=== PATIENT | female | born 1950 | race Caucasian/White ===

== ENCOUNTER → 2018-01-21 | Outpatient (CLI) | payer OTHER ==
[~2018-01-21] VITALS: Ht 149.9 cm; Wt 61.0 kg
[~2018-01-21] MED LIST: Advair HFA 115/21 IH; CALTRATE 6001 TABLE1 PO; CENTRUM SILVER1 EAC3 PO; CITRACAL D + H1 EACH PO; CRESTOR10 MG PO; Colace PO; LIPITOR10 MG PO; Levaquin PO; NEXIUM40 MG PO; PANTOPRAZOLE SO40 MG PO; PRED FORTE100 DROP/5 LEFT EYE; PROLENSA1.6 ML RIGHT EYE; PROTONIX40 MG PO; PROVENTIL,2.5 MG/3 M IH; SINGULAIR10 MG PO; SYMBICORT60 INHALA1 IH; THEO-DUR,THEOC200 MG PO; THEOPHYLLINE A200 M1 PO; THERAGRAN1 TABLET PO; Tessalon Perle PO; Tylenol Regular Stre PO; VITAMIN D31000 UNIT PO; ZANTAC150 MG PO
[2018-01-21 14:05] VITALS: BP 147/77
== END | disposition home or self-care (01) ==
LOC: IVINF 13:48
DX: M85.80 Other specified disorders of bone density and structure, unspecified site (principal); Z87.19 Personal history of other diseases of the digestive system
CPT/HCPCS: 96365; J3489